=== PATIENT | female | born 2000 ===

== ENCOUNTER 2025-03-03 09:51 | Outpatient (AMB) | payer MEDICAID, SELFPAY ==
[2025-03-03 10:01] VITALS: BP 119/87; PULSE 88; RESP 18; TEMP 36.2; O2SAT 100; BMI 21.1
--- NOTE | 2025-03-03 10:04 | AMB.GYNCLNOT ---
Vital Signs 03/03/25 10:01 03/03/25 10:05 Height 1.7 m Height Method Stated Weight 61.235 kg Weight Measurement Method Standing Scale BMI 21.1 BP 119/87 H 119/87 H Blood Pressure Source Automatic Cuff Blood Pressure Location Left Upper Arm Position Sitting Respiration 18 18 Pulse 88 88 Pulse Source Monitor Temp 97.2 F 97.2 F Temp Source Oral Pulse Oximetry (%) 100 100 Oxygen Delivery Method Room Air Allergies/Home Meds Allergies & Medications Allergies No Known Allergies Allergy (Verified 03/03/25 10:02) Medication Reconciliation No Known Home Medications 03/03/25 [History Confirmed 03/03/25] Intake Visit Data Collection New Patient or Established: Established Patient (seen at [facility] within 3 years) Reason for Visit:: OBC Seen by Clinical Staff ONLY (RN/MA): No Etl Database Developer Required: No Do You Feel Safe at Home: Yes Authorities Contacted: N/A PCP or OBGYN visit in last 3 months: Yes Hx Now: Yes Are you currently on any form of Control: No Last menstrual period: 02/15/25 Pain Present Currently: No Pain Scale Used: Archer-Amezcua/Numerical Pain scale:: 0 Smoking Status Smoking Status: Never smoker Immunizations Flu Vaccine in the Last 12 Months: No Flu Vaccine Exclusion Criteria: No Exclusion Criteria 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 1. Little interest or pleasure in doing things: not at all 2. Feeling down, depressed, or hopeless: not at all Total score: 0 PHQ-9 3. Trouble falling or staying asleep, or sleeping too much: Not at all 4. Feeling tired or having little energy: Not at all 5. Poor appetite or overeating: Not at all 6. Feeling bad about yourself - or that you are a failure or have let yourself or your family down: Not at all 7. Trouble concentrating on things, such as reading the newspaper or watching television: Not at all 8. Moving or speaking so slowly that other people could have noticed? - Or the opposite - being so fidgety or restless that you have been moving around a lot more than usual: not at all 9. Thoughts that you would be better off or of hurting yourself in some way: Not at all Total score: 0 If you checked off any problems, how difficult have these problems made it for you to do your work, take care of things at home, or get along with other people?: not difficult at all Source: Developed by Drs. Rafat Hernandez, Elen Segovia, Kevin Cano and colleagues, with an educational oksana from [employer] Depression screen completed yes Social History Living Situation History Marital Status: Single Lives With: Family Housing: House Tobacco History Smoking Status: Never smoker Second Hand Smoke Exposure: No Alcohol History Alcohol Intake: Never Domestic Abuse History Do You Feel Safe at Home: Yes History of Present Illness HPI Narrative Consultation for multiple abnormal pap smears in 2021, 2023, and 2024 Alem Dixon is a 24-year-old female presenting for consultation regarding multiple abnormal pap smears occurring in 2021, 2023, and 2024. She was referred from [facility] for evaluation of these persistent abnormalities. The patient's most recent pap smear on January 16, 2025 showed a low-grade squamous intraepithelial lesion with negative HPV testing. Her previous pap smear from September 23, 2023 also demonstrated a low-grade squamous intraepithelial lesion, though HPV testing was not performed at that time. The patient has had two consecutive abnormal pap smears with the same findings. The patient expressed concern about her family history, specifically mentioning that her grandmother from cervical cancer. She recalls receiving childhood vaccinations, including what she remembers as a yellow vaccine around age 12, and received her pediatric care from Dr. Thompson. Medications: - Gardasil 9 vaccine received during childhood around age 12 Diagnostic Test Results and Labs: - Pap smear (01-16-2025): Low-grade squamous intraepithelial lesion - HPV testing (01-16-2025): Negative - Pap smear (09-23-2023): Low-grade squamous intraepithelial lesion Exam General General Appearance: alert, in no apparent distress and healthy appearing Head Head exam: atraumatic Neck Neck exam: Present normal inspection and trachea midline Chest Chest inspection: Present normal inspection and symmetric chest wall rise External exam: Present normal external exam; Absent tenderness Neuro Neurological exam: Present oriented X3 Psych Psychiatric exam: Present normal affect and normal mood Office Procedures OBC Clinic LOC & Office Proc's Nursing/Assessment Patient Status: Established Patient OB Clinic Nursing Assessment: Medication Reconciliation, Update PMH in EMR and Vital Signs OB Clinic Coordination of Care: Consent,records obtained, informed consent, Education Simp Pt/Fam, Lab and Imaging orders, Results/Orders obtained and Staff clarify orders Special Needs: Heart tones Established Patient Charge Established Patient Point Assignment: 110 Established Patient Point Charge: EP Level 3 (80-115) Assessment & Plan Diagnosis / Problem List (1) Low grade squamous intraepithelial lesion on cytologic smear of cervix (LGSIL): Status: Acute Plan Low-grade squamous intraepithelial lesion Assessment: Patient has had three consecutive abnormal Pap smears (2021, 2023, 2024) showing low-grade squamous intraepithelial lesions (LSIL). Most recent Pap smear from January 16, 2025 showed LSIL with negative HPV testing. Given patient's age of 24 years, current guidelines recommend conservative management for LSIL. HPV testing is negative, which significantly reduces cancer risk. Literature supports that abnormalities in women under 25-30 years typically resolve spontaneously without intervention. Plan: - Repeat Pap smear with HPV testing in one year - Schedule follow-up at this clinic rather than previous providers - If next year's Pap shows same results with negative HPV, extend screening interval to 3 years - No biopsy or procedures recommended at this time given patient's age and negative HPV status - Patient educated that abnormalities should resolve spontaneously with conservative management
[2025-03-03 10:05] VITALS: BP 119/87; PULSE 88; RESP 18; TEMP 36.2; O2SAT 100
== END 2025-03-03 10:35 | disposition home or self-care (01) ==
LOC: HODSOBC 09:51
PROVIDERS: Supervising Provider Obstetrics & Gynecology; Visit Provider Obstetrics & Gynecology
DX: R87.612 Low grade squamous intraepithelial lesion on cytologic smear of cervix (LGSIL) (principal); Z80.49 Family history of malignant neoplasm of other genital organs
CPT/HCPCS: 99213; G0463